=== PATIENT | female | born 1995 | race Caucasian/White ===

== ENCOUNTER 2020-10-09 08:32 | Outpatient (CLI) | payer MEDICAID, SELFPAY ==
--- NOTE | 2020-10-09 08:40 | US_ITS ---
WS: [id number] ULTRASOUND PELVIS TECHNIQUE: Transabdominal. CLINICAL INFORMATION: IRREGULAR MENSES/HIRSUTISM LMP: September 30, 2020 : No. COMPARISON: None. FINDINGS: Uterus Orientation: Anteverted. Size: 10.2 cm x 4.8 cm x 3.7 cm Masses: None. Cervix: cm. Endometrium: Normal. Endometrium thickness: 0.7 cm. Adnexa: Multifollicular ovaries Right ovary size: 3.5 cm x 2.4 cm x 2.1 cm. Right ovary volume: 9.6 ccm3 Left ovary size: 3.1 cm x 2.2 cm x 2.0 cm. Left ovary volume: 7.3 ccm3 Free fluid: None. Other findings: None. US/US pelvic complete* [id number] IMPRESSION: 1. Normal uterus and endometrium. Endometrium measures 7 mm. 2. Normal multifollicular ovaries bilaterally. 3. No free fluid in the cul-de-sac.
== END 2020-10-09 08:33 | disposition home or self-care (01) ==
LOC: RAD 08:37
PROVIDERS: PCP Family Medicine; Visit Provider Family Medicine
DX: N92.6 Irregular menstruation, unspecified (principal); L68.0 Hirsutism
CPT/HCPCS: 76856

== ENCOUNTER → 2020-11-22 12:02 | Outpatient (BNVA) | payer MEDICAID, SELFPAY | PROVIDERS: PCP Family Medicine; Visit Provider Surgery | DX: Z01.812 Encounter for preprocedural laboratory examination (principal); Z20.822 Contact with and (suspected) exposure to COVID-19 | CPT/HCPCS: 87635 ==

== ENCOUNTER 2020-11-27 07:08 | Day surgery (SDC) | payer MEDICAID, SELFPAY ==
--- NOTE | 2020-11-27 07:33 | ANES.PREANE2 ---
Pre-Anesthetic Assessment Pre-Anesthetic Assessment: Height/Weight: Height 1.6 m Weight 136.985 kg Preop Diagnosis: Bleeding per rectum Proposed Procedure: Operation Date: 11/27/20 09:00 Proposed Procedures p Colonoscopy 15542 K62.5(Not Applicable) - Jg Polanco MD Familial anesthetic complications: None Was Beta Leigh taken within 24 hours: N/A Was Clonidine taken within 24 hours: N/A Last intake: NPO > 8 hrs Social: Social History: Tobacco and No alcohol Exam: Pre-Anes Outpt Exam: alert, oriented x 3, clear to auscultation bilaterally and regular rate & rhythm Airway: Cervical ROM: WNL MP: 1 Dentition: Full Metabolic: Metabolic: Morbid obesity Anesthetic Plan: ASA status: 2 Anesthesia: MAC Risk of > 500 ml blood loss (7ml/kg in children): No PFSH Anesthesia PFSH: Family History Grandmother Cancer Grandfather Cancer Father Diabetes Other Hypertension Social History Smoking and tobacco status: current every day smoker e-cigarettes Alcohol intake: current Alcohol intake frequency: holidays/special occasions only Lives independently: Yes Household members: spouse and children Data Anesthesia Cardiac Studies: No Data to Display
--- NOTE | 2020-11-27 08:08 | W.PM.OPSUD ---
Surgery/Procedure H&P Update DATE OF PROCEDURE: November 27, 2020 DATE H&P PERFORMED: 10/28/20 H&P UPDATE INFORMATION: I have reviewed H&P completed within last 30 days, I have examined patient prior to procedure and No changes to prior documentation PREOP DIAGNOSIS: Bleeding per rectum PRIMARY INDICATION FOR PROCEDURE: The same PLANNED PROCEDURE: Operation Date: 11/27/20 09:00 Proposed Procedures p Colonoscopy 00035 K62.5(Not Applicable) - Jg Polanco MD
[2020-11-27 08:16] VITALS: BP 167/97; PULSE 74; RESP 18; TEMP 37; O2SAT 99
[2020-11-27] MEDS: sodium chloride 0.9% 1,000 ML 30 ML IV (08:42)
[2020-11-27 09:22] VITALS: BP 123/71; PULSE 72; RESP 16; TEMP 36.6; O2SAT 95
[2020-11-27 09:32] VITALS: BP 128/73; PULSE 78; RESP 18; TEMP 36.6; O2SAT 98
--- NOTE | 2020-11-27 13:13 | ANE.PACU2 ---
Inpatient post-anesthesia follow up: Airway intact: Yes Vital signs: Temperature 97.8 F Pulse Rate 78 Respiratory Rate 18 Blood Pressure 128/73 Pulse Oximetry 98 Oxygen Delivery Me thod Room Air Oxygen Flow Rate Fraction of Inspir ed Oxygen Hydration adequate: Yes Nausea and vomiting: No Pain level: 1 Mental status: Baseline
== END 2020-11-27 09:55 | disposition home or self-care (01) ==
PROVIDERS: PCP Family Medicine; Visit Provider Surgery
PROC: 0DJD8ZZ Inspection of Lower Intestinal Tract, Via Natural or Artificial Opening Endoscopic (ICD-10-PCS; CPT 45378; principal; 2020-11-27 09:00)
DX: K62.5 Hemorrhage of anus and rectum (principal); Q27.30 Arteriovenous malformation, site unspecified; E66.01 Morbid (severe) obesity due to excess calories; Z68.43 Body mass index [BMI] 50.0-59.9, adult; F17.290 Nicotine dependence, other tobacco product, uncomplicated
CPT/HCPCS: 45378; 96360; J2704; J7030

== ENCOUNTER 2020-12-31 13:06 | Emergency (ER) | payer MEDICAID, SELFPAY ==
--- NOTE | 2020-12-31 13:58 | XRR_ITS ---
PROCEDURE INFORMATION: Exam: XR Chest Exam date and time: 12/31/2020 1:59 PM Age: 25 years old Clinical indication: Cough and dyspnea; Additional info: Dyspnea/cough TECHNIQUE: Imaging protocol: XR of the chest. Views: 1 view. Other technique: Frontal portable upright view of the chest. COMPARISON: CR Chest 1 [place] [id number] 06/27/2015 5:56 PM FINDINGS: Lungs: The lungs are clear bilaterally. The pulmonary vasculature is normal. Pleural spaces: No pleural effusion. No pneumothorax. Heart/Mediastinum: The heart is normal in size and contour. Mediastinum: Stable. Bones/joints: Stable. XR/XR chest 1V portable [id number] IMPRESSION: No acute cardiopulmonary abnormality identified.
[2020-12-31 14:00] VITALS: BP 137/103; PULSE 84; RESP 18; TEMP 37.1; O2SAT 97; BMI 52.0
--- NOTE | 2020-12-31 14:50 | W.ED.URI ---
HPI - URI/Sore Throat General: Chief Complaint: Upper Respiratory Infection Stated Complaint: CHEST CONGESTION Time Seen by Provider: 12/31/20 14:46 History of Present Illness: HPI Narrative: Complaining of nasal congestion sneezing that has now progressed to her lungs this has been going on for couple of days she has a history of bronchitis and this feels similar she does occasionally smoke. She denies any fevers denies any exposures to Covid she has had her first round of vaccination several weeks ago denies fevers she has a nonproductive cough she is tried [id number] meds without relief she denies any loss of taste or smell came in today because she was getting so sore from all the coughing Review of Systems Narrative: General: denies fatigue, fever or chills HEENT: denies ear pain, ++nasal congestion, denies vision changes, denies sore throat Neck: denies masses or pain Resp: nonproductive cough, denies shortness of breath, denies pleuritic pain Cardio: denies chest pain, denies edema GI: denies abdominal pain, denies N/V/D, denies black/tarry or bloody stools : denies hematuria, denies dysuria Neuro: denies headache, denies dizziness, denies motor or sensory changes Musculoskeletal: denies pain, denies swelling Skin: denies rashes Psych: denies SI or HI Endocrine: denies thyroid symptoms, denies lymphadenopathy all over ROS reviewed and patient denies PFSH ED PFSH: Medical History Rectal bleeding Family History Grandmother Cancer Grandfather Cancer Father Diabetes Other Hypertension Social History Smoking and tobacco status: current every day smoker e-cigarettes Alcohol intake: current Alcohol intake frequency: holidays/special occasions only Lives independently: Yes Household members: spouse and children Physical Exam Narrative: EXAM NARRATIVE: General: a/o/3, no distress, actively couging, sounds congested Head: atraumatic HEENT: normal eyes, normal conjunctiva, normal hearing, normal external nose, normal mouth, mucous membranes moist Neck: FROM, trachea midline Chest: normal expansion, no gross deformities Resp: normal speech, no retractions, no accessory muscle use, coarse BS bilaterally, coughing Cardio: regular rate and rhythm and no murmur, no peripheral edema, normal peripheral pulses GI: soft, flat non tender, no guarding normal BS : deferred Musculoskeletal: FROM, no pain or gross deformities Neuro: a/o appropriate for age, no gross motor or sensory deficits, CN II-XII grossly intact, normal coordination, normal speech Skin: no rashes Psych: cooperative, normal mood and effect Course Vital Signs: Vital signs: Vital Signs Temperature 98.8 F 12/31/20 14:00 Pulse Rate 84 12/31/20 14:00 Respiratory Rate 18 12/31/20 14:00 Blood Pressure 137/103 12/31/20 14:00 Pulse Oximetry 97 12/31/20 14:00 MDM - URI/Sore Throat MDM Narrative: Medical decision making narrative: Patient denies any fevers or any other Covid symptoms she really does not want to be tested today she feels like it is more like her bronchitis Chest x-ray shows no signs of pneumonia patient does sound very congested and coughing will place her on an albuterol inhaler some prednisone as well as a Z-Allan and some cough medications patient feels comfortable with this plan discussed with her any risks or signs or symptoms of PE and she denies any of them and furthermore this all started as a cold-like symptoms she does sound very congested Discharge Plan Discharge Patient Disposition: Home Clinical Impression: Bronchitis Upper respiratory infection Qualifiers: URI type: unspecified URI Qualified Code(s): J06.9 - Acute upper respiratory infection, unspecified Condition: Stable Prescriptions: New albuterol sulfate 90 mcg/actuation HFA aerosol inhaler 2 inh inhalation QID PRN (Reason: shortness of breath or wheezing) Qty: 8.5 RF: 0 promethazine-phenylephrine [Promethazine VC] 6.25-5 mg/5 mL syrup 5 ml PO Q6H PRN (Reason: cough) Qty: 473 RF: 0 azithromycin [Zithromax Z-Allan] 250 mg tablet See Rx Instructions .ROUTE .COMPLEX Qty: 6 RF: 0 prednisone 20 mg tablet 20 mg PO BID 5 Days Qty: 10 RF: 0 No Action No Known Home Medications RF: 0 Discharge Orders: Discharge ED (Routine); Ordered 12/31/20 Ordered By: Olamide Perdomo Referrals: Jed Perez MD [Primary Care Provider] - Discharge Diet: Advance as tolerated Patient Instructions: Acute Bronchitis (ED) Activity Restrictions/Additional Instructions: Use the inhaler 2 puffs every 6 hours as needed for wheezing. Cough medication may make you drowsy. Also start the steroids today and get 2 doses then or you could take 2 pills together when you first get the prescription. Z-Allan is an antibiotic for infections Return if worsening of symptoms shortness of breath Follow-up with your provider in 1 week thank you for choosing [facility] for your healthcare needs today. Please realize this is an emergency room and that we are providing you with a medical screening exam and this may not be complete and all inclusive of all the testing and or work up that you may need to determine your ailment or severity of your illness. It is very important that you follow up as instructed or that you return to the Emergency Department should you have concerns or if your condition changes or worsens in any way. Coding Level of Care Code ED Cloud Subject Matter Expert for Anthony Burton
[2020-12-31 14:56] VITALS: BP 150/96; PULSE 88; RESP 20; TEMP 36.6; O2SAT 97
== END 2020-12-31 15:03 | disposition home or self-care (01) ==
PROVIDERS: Emergency Provider Emergency Medicine; PCP Family Medicine
DX: J40 Bronchitis, not specified as acute or chronic (principal); J06.9 Acute upper respiratory infection, unspecified; F17.290 Nicotine dependence, other tobacco product, uncomplicated
CPT/HCPCS: 71045; 99282

== ENCOUNTER → 2021-02-15 10:51 | Outpatient (BNVA) | payer MEDICAID, SELFPAY | PROVIDERS: PCP Family Medicine; Visit Provider Nurse Practitioner | DX: J02.9 Acute pharyngitis, unspecified (principal); J02.0 Streptococcal pharyngitis | CPT/HCPCS: 87880 ==

== ENCOUNTER 2021-09-11 13:36 | Emergency (ER) | payer MEDICAID, SELFPAY ==
[2021-09-11 14:01] VITALS: BP 142/102; PULSE 85; RESP 17; TEMP 36.2; O2SAT 98; BMI 49.4
--- NOTE | 2021-09-11 19:07 | ED_ITS ---
HPI - General Adult General: Chief complaint: Vaginal Bleeding Stated complaint: Pt states Uteran Lining fell out Severe ABD pain Time Seen by Provider: 09/11/21 19:03 Source: patient Mode of arrival: ambulatory Limitations: no limitations History of Present Illness: 26-year-old female states that she has been about a day late for her menstruation. She states that she had been started all day and then started having some lower abdominal cramping pain that is roughly an 8 at around noon or 1 and had a large amount of bleeding at 1 time she states she fell like she just she had at her uterine lining states that since then she just had spotting her pain is actually improving but still having pain she rates a 3 out of 10 she does not believe she is denies any worsening improving factors denies any discharge. Associated symptoms: Deny chest pain, dyspnea, headache(s), nausea, rash or vomiting Review of Systems Const: Denies: fever(s), chills, body aches or change in appetite Eyes: Denies: blurry vision or eye discomfort ENMT: Denies: throat pain or dental pain Card: Denies: chest pain Resp: Denies: dyspnea GI: Denies: abdominal pain, nausea, vomiting or diarrhea : Denies: dysuria Musc: Denies: neck pain or back pain Skin/Breast: Denies: rash Neuro: Denies: headache(s) Psych: Denies: depression Surjit/Lymph: Denies: easy bruising All/Imm: Denies: urticaria PFSH ED PFSH: Medical History Rectal bleeding Family History Grandmother Cancer Grandfather Cancer Father Diabetes Other Hypertension Social History Smoking and tobacco status: current every day smoker e-cigarettes Alcohol intake: current Alcohol intake frequency: holidays/special occasions only Lives independently: Yes Household members: spouse and children Physical Exam Const: COMMON NORMALS: no acute distress, patient oriented x3 and healthy appearing HENMT: COMMON NORMALS: normocephalic and atraumatic HEAD & SCALP: normocephalic and atraumatic Eye: COMMON NORMALS: Equal, round and reactive pupils present and EOMs intact bilaterally PUPIL: Yes Equal, round and reactive pupils present Neck/C-Spine: COMMON NORMALS: full ROM and supple Chest: COMMONS NORMALS: normal inspection of the chest and normal palpation of entire chest wall Resp: COMMON NORMALS: normal respiratory effort, No retractions, No use of accessory muscles and clear to auscultation bilaterally AUSCULTATION: clear to auscultation bilaterally Cardio: COMMON NORMALS: regular rate, regular rhythm and No murmurs present (Cardio) RATE: regular rate RHYTHM: regular rhythm GI: COMMON NORMALS: Normal to inspection, nondistended, normoactive bowel sounds present, Soft to palpation, non-tender and no masses PALPATION: Yes Soft to palpation : SPECULUM EXAM - CERVIX: Yes Cervical os closed, No Cervical bleeding and No Abnormal cervical discharge present Extremity: COMMON NORMALS: normal to inspection and full ROM Neuro: COMMON NORMALS: patient oriented x3, moves all extremities and no focal motor deficits Psych: COMMON NORMALS: mental status grossly normal, Normal thought process present and cooperative THOUGHT PROCESS: Normal thought process present Skin: COMMON NORMALS: no rashes or lesions noted and no wounds GENERAL SKIN EXAM: no rashes or lesions noted Course Vital Signs: Vital signs: Vital Signs Temperature 97.2 F L 09/11/21 14:01 Pulse Rate 85 09/11/21 14:01 Respiratory Rate 17 09/11/21 14:01 Blood Pressure 142/102 09/11/21 14:01 Pulse Oximetry 98 09/11/21 14:01 [facility] - General Adult Medical Decision Making Patient presents here with an episode of vaginal bleeding and some slight lower abdominal cramping patient feels much improved her exam and blood work here are all normal she is not she stable for discharge she is to follow-up with PCP and return if worsening she understands agrees to plan. Lab Data : 09/11/21 19:53 09/11/21 19:53 Laboratory Results WBC 9.4 10^3/uL (4.0-10.0) 09/11/21 19:53 RBC 4.65 10^6/uL (4.1-5.3) 09/11/21 19:53 Hgb 13.8 g/dL (11.5-15.3) 09/11/21 19:53 Hct 41.0 % (37.0-47.0) 09/11/21 19:53 MCV 88.2 fl (81-99) 09/11/21 19:53 MCH 29.7 pg (28.0-34.0) 09/11/21 19:53 MCHC 33.7 g/dL (30.0-36.0) 09/11/21 19:53 RDW 13.1 % (12.1-15.1) 09/11/21 19:53 Plt Count 383 10^3/cmm (130-400) 09/11/21 19:53 MPV 9.5 fL (7.4-10.4) 09/11/21 19:53 Neut % (Auto) 61.2 % 09/11/21 19:53 Lymph % (Auto) 29.5 % 09/11/21 19:53 Fajardo % (Auto) 5.6 % 09/11/21 19:53 Eos % (Auto) 3.3 % 09/11/21 19:53 Baso % (Auto) 0.2 % 09/11/21:53 Neut # (Auto) 5.74 10^3/uL (1.8-7.7) 09/11/21 19:53 Lymph # (Auto) 2.8 10^3/uL (0.8-4.8) 09/11/21 19:53 Fajardo # (Auto) 0.5 10^3/uL (0.2-0.9) 09/11/21 19:53 Eos # (Auto) 0.3 10^3/uL (0.0-0.8) 09/11/21 19:53 Baso # (Auto) 0.0 10^3/uL (0.0-0.1) 09/11/21 19:53 Nucleated RBC % (auto) 0 % 09/11/21:53 Nucleated RBCs # 0.0 /100WBC 09/11/21 19:53 Sodium 138 mmol/L (136-145) 09/11/21 19:53 Potassium 4.0 mmol/L (3.5-5.1) 09/11/21 19:53 Chloride 104 mmol/L (98-107) 09/11/21 19:53 Carbon Dioxide 24 mmol/L (22-29) 09/11/21 19:53 Anion Gap 14.0 (5-19) 09/11/21 19:53 BUN 13 mg/dL (6-20) 09/11/21 19:53 Creatinine 0.7 mg/dL (0.5-0.9) 09/11/21 19:53 GFR Calculation 101.1 mL/min (90-130) 09/11/21 19:53 Glucose 80 mg/dL (65-115) 09/11/21 19:53 Calculated Osmolality 285 mOsm/kg (285-295) 09/11/21 19:53 Calcium 9.7 mg/dL (8.5-10.5) 09/11/21 19:53 Total Bilirubin 0.2 mg/dL (0.15-1.2) 09/11/21 19:53 AST 15 U/L (0-32) 09/11/21 19:53 ALT 16 U/L (0-33) 09/11/21 19:53 Alkaline Phosphatase 101 IU/L (35-105) 09/11/21 19:53 Total Protein 7.9 g/dL (6.6-8.7) 09/11/21 19:53 Albumin 4.2 g/dL (3.5-5.2) 09/11/21 19:53 Globulin 3.7 g/dL (1.3-4.6) 09/11/21 19:53 Lipase 23 U/L (13-60) 09/11/21 19:53 HCG, Qual Negative (Negative) 09/11/21 19:53 Discharge Plan Discharge Patient Disposition: Home Clinical Impression: Vaginal bleeding, Abdominal pain Condition: Stable Prescriptions: New Naprosyn 500 mg tablet 500 mg PO BID PRN (Reason: pain) Qty: 20 0RF No Action doxycycline hyclate 100 mg capsule 100 mg PO BID 7 Days Qty: 14 0RF albuterol sulfate 90 mcg/actuation HFA aerosol inhaler 2 inh inhalation QID PRN (Reason: shortness of breath or wheezing) Qty: 8.5 0RF Promethazine VC 6.25-5 mg/5 mL syrup 5 ml PO Q6H PRN (Reason: cough) Qty: 473 0RF Discharge Orders: Discharge ED (Routine); Ordered 09/11/21 Ordered By: Lili Strickland Referrals: Jed Perez MD [Primary Care Provider] - Discharge Diet: Advance as tolerated Discharge Activity: Resume usual activity Patient Instructions: Abnormal (Dysfunctional) Uterine Bleeding (ED), Abdominal Pain (ED) Coding Level of Care Code ED Management Scientist for Chg Fwd Exam Comprehensive
[2021-09-11] MEDS: ketorolac 30 mg/mL INJ IM (19:55)
[2021-09-11 20:20] LABS: Basophils % 0.2 %; Eosinophils # 0.3 10^3/uL (0.0-0.8); Eosinophils % 3.3 %; Hemoglobin 13.8 g/dL (11.5-15.3); Lymphocytes # 2.8 10^3/uL (0.8-4.8); Lymphocytes % 29.5 %; Mean Corpuscular HGB Conc 33.7 g/dL (30.0-36.0); Mean Corpuscular Hemoglobin 29.7 pg (28.0-34.0); Mean Corpuscular Volume 88.2 fl (81-99); Mean Platelet Volume 9.5 fL (7.4-10.4); Monocytes # 0.5 10^3/uL (0.2-0.9); Monocytes % 5.6 %; Neutrophils # 5.74 10^3/uL (1.8-7.7); Neutrophils % 61.2 %; Nucleated Red Blood Cells % 0 %; Platelet Count 383 10^3/cmm (130-400); Red Blood Count 4.65 10^6/uL (4.1-5.3); Red Cell Distribution Width 13.1 % (12.1-15.1); White Blood Count 9.4 10^3/uL (4.0-10.0)
[2021-09-11 20:47] LABS: Alanine Aminotransferase 16 U/L (0-33); Albumin Level 4.2 g/dL (3.5-5.2); Alkaline Phosphatase 101 IU/L (35-105); Aspartate Amino Transferase 15 U/L (0-32); Blood Urea Nitrogen 13 mg/dL (6-20); Calcium 9.7 mg/dL (8.5-10.5); Carbon Dioxide 24 mmol/L (22-29); Chloride 104 mmol/L (98-107); Creatinine Clr Calc Pharmacy 151.9792; Globulin 3.7 g/dL (1.3-4.6); Glomerular Filtration Rate 101.1 mL/min (90-130); Glucose 80 mg/dL (65-115); Lipase 23 U/L (13-60); Osmolality Calculated 285 mOsm/kg (285-295); Sodium 138 mmol/L (136-145); Total Bilirubin 0.2 mg/dL (0.15-1.2); Total Protein 7.9 g/dL (6.6-8.7)
[2021-09-11 21:14] LABS: HCG, Serum Qual Negative (Negative)
[2021-09-11 21:37] VITALS: RESP 18
== END 2021-09-11 21:38 | disposition home or self-care (01) ==
PROVIDERS: Emergency Medicine; Emergency Provider Emergency Medicine; PCP Family Medicine
DX: N93.9 Abnormal uterine and vaginal bleeding, unspecified (principal); R10.9 Unspecified abdominal pain; F17.290 Nicotine dependence, other tobacco product, uncomplicated
CPT/HCPCS: 80053; 83690; 84703; 85025; 96372; 99283; J1885

== ENCOUNTER 2022-03-22 11:26 | Emergency (ER) | payer BC, MEDICAID, SELFPAY ==
[2022-03-22 11:51] VITALS: BP 129/81; PULSE 72; RESP 16; TEMP 36.6; O2SAT 97; BMI 47.8
--- NOTE | 2022-03-22 12:10 | W.ED.CHESTPA ---
HPI - Chest Pain General: Chief Complaint: Chest Pain Stated Complaint: fast hr , cp, numbness to bilateral hand and feet Time Seen by Provider: 03/22/22 12:10 History of Present Illness: Ms. Ceja is a 26-year-old lady with significant past medical history of anxiety, depression, PCOS who presents to the emergency department due to shortness of breath chest pain. She endorses shortness of breath starting with eating yesterday evening. She denies choking event or new food exposure. Since that time she has had moderate shortness of breath was worse exertion and this morning she woke up with burning substernal chest pain without significant radiation. Additionally she notes bilateral lower and upper extremity hand and feet tingling difficulty movement. There is no focality regarding this. No new neuro symptoms. Palpitations and racing heart also present. Course has persisted. Reports this feels different from prior anxiety. No other specific changes in health, exacerbating, or alleviating factors identified. Onset (ago): hour(s) Timing of current episode: constant Prior episodes: No Pain location: substernal Pain radiation: none Severity: moderate Quality: burning Associated symptoms: Reports dyspnea Review of Systems General: Reports: 10 or more systems reviewed and unremarkable except in HPI and below Resp: Reports: dyspnea PFSH ED PFSH: Medical History Rectal bleeding Family History Grandmother Cancer Grandfather Cancer Father Diabetes Other Hypertension Social History Smoking and tobacco status: current every day smoker e-cigarettes Alcohol intake: current Alcohol intake frequency: holidays/special occasions only Lives independently: Yes Household members: spouse and children Physical Exam Const: COMMON NORMALS: alert GENERAL APPEARANCE: cooperative and well developed HENMT: COMMON NORMALS: normocephalic and atraumatic HEAD & SCALP: normocephalic and atraumatic Eye: COMMON NORMALS: conjunctivae normal CONJUNCTIVA: Yes conjunctivae normal SCLERA: sclerae normal Neck/C-Spine: COMMON NORMALS: supple GENERAL: Yes trachea midline Resp: COMMON NORMALS: clear to auscultation bilaterally EFFORT & INSPECTION: Yes able to speak in complete sentences AUSCULTATION: clear to auscultation bilaterally Cardio: COMMON NORMALS: regular rate and regular rhythm RATE: regular rate RHYTHM: regular rhythm GI: COMMON NORMALS: Soft to palpation PALPATION: Yes Soft to palpation and No Tenderness to palpation present (GI) Extremity: GENERAL: Yes normal exam except as noted and No edema Neuro: COMMON NORMALS: moves all extremities SENSORIUM/ORIENTATION: Yes alert and No Orientation impaired OTHER: Mildly slowed dexterity upon testing of bilateral hands however appear symmetric without particular nerve distribution Psych: COMMON NORMALS: mental status grossly normal and Normal thought process present THOUGHT PROCESS: Normal thought process present Course ED course: - Patient was seen and evaluated by me at bedside - Patient placed on cardiac monitors, IV access obtained - Initial evaluation notable for exam as above. - Labs and xrays personally interpreted by me EKG notable for sinus rhythm with nonspecific ST-T segment abnormalities. No STEMI. - Fluids, analgesia, and aspirin given - Labs notable for no acute abnormality to explain symptoms. D-dimer is elevated, ordered after discussion with the patient regarding risks and benefits. - Imaging notable for no lobar consolidation or pneumothorax. No acute pathology identified on CTA - Upon serial reexamination after treatment the patient was mildly improved - Based on patient history, evaluation, and testing as interpreted the most likely cause of the patient's condition is chest pain with shortness of breath and paresthesias of uncertain etiology. Patient is low risk by heart score. - The results of ED evaluation were discussed with the patient including prescriptions and/or symptomatic cares (if applicable) including appropriate and responsible use, followup plan, and return precautions. The patient verbalized understanding and felt safe for discharge. - Patient discharged in satisfactory condition. Note: Click bubbles or prepopulated fried in note writing are used for assistance with data collection and billing and are inherently more limited than narrative and other text portions of this note. Please use narrative for additional clinical history and defer to narrative/free test for any case of contradictory information. If information appears in only free text or click bubble it should be considered present or absent as reported. Please contact note underwriter solicitation director for clarifications of clinical information or contradictory information. MDM is a brief summary, contradictory or erroneous seeming information should be clarified and full note should be reviewed. Vital Signs: Vital signs: Vital Signs Temperature 97.9 F 03/22/22 11:51 Pulse Rate 57 L 03/22/22 14:45 Respiratory Rate 16 03/22/22 14:45 Blood Pressure 125/80 03/22/22 14:45 Pulse Oximetry 97 03/22/22 14:45 Oxygen Delivery Me thod 03/22/22 14:45 MDM - Chest Pain Medical Decision Making 26-year-old lady presenting with paresthesias, chest pain, shortness of breath. ED evaluation without obvious cause. Satisfactory for outpatient management. Medical Records I reviewed the patient's medical records. Lab Data I reviewed the patient's lab results. : 03/22/22 12:30 03/22/22 12:30 Radiology Impressions Chest X-Ray 03/22/22 12:20 IMPRESSION: No acute findings. Chest CTA 03/22/22 12:59 IMPRESSION: No pulmonary embolus or aortic dissection. Laboratory Results WBC 9.5 10^3/uL (4.0-10.0) 03/22/22 12:30 RBC 4.77 10^6/uL (4.1-5.3) 03/22/22 12:30 Hgb 14.4 g/dL (11.5-15.3) 03/22/22 12:30 Hct 42.0 % (37.0-47.0) 03/22/22 12:30 MCV 88.1 fl (81-99) 03/22/22 12:30 MCH 30.2 pg (28.0-34.0) 03/22/22 12:30 MCHC 34.3 g/dL (30.0-36.0) 03/22/22 12:30 RDW 12.7 % (12.1-15.1) 03/22/22 12:30 Plt Count 321 10^3/cmm (130-400) 03/22/22 12:30 MPV 9.6 fL (7.4-10.4) 03/22/22 12:30 Neut % (Auto) 64.8 % 03/22/22 12:30 Lymph % (Auto) 25.4 % 03/22/22 12:30 [place] % (Auto) 6.2 % 03/22/22 12:30 Eos % (Auto) 3.2 % 03/22/22 12:30 Baso % (Auto) 0.2 % 03/22/22 12:30 Neut # (Auto) 6.13 10^3/uL (1.8-7.7) 03/22/22 12:30 Lymph # (Auto) 2.4 10^3/uL (0.8-4.8) 03/22/22 12:30 [place] # (Auto) 0.6 10^3/uL (0.2-0.9) 03/22/22 12:30 Eos # (Auto) 0.3 10^3/uL (0.0-0.8) 03/22/22 12:30 Baso # (Auto) 0.0 10^3/uL (0.0-0.1) 03/22/22 12:30 Nucleated RBC % (auto) 0 % 03/22/22 12:30 Nucleated RBCs # 0.0 /100WBC 03/22/22 12:30 D-Dimer 0.78 ug/mIFEU (0-0.59) H 03/22/22 12:30 Sodium 139 mmol/L (136-145) 03/22/22 12:30 Potassium 4.7 mmol/L (3.5-5.1) 03/22/22 12:30 Chloride 103 mmol/L (98-107) 03/22/22 12:30 Carbon Dioxide 26 mmol/L (22-29) 03/22/22 12:30 Anion Gap 14.7 (5-19) 03/22/22 12:30 BUN 9 mg/dL (6-20) 03/22/22 12:30 Creatinine 0.7 mg/dL (0.5-0.9) 03/22/22 12:30 GFR Calculation 101.1 mL/min (90-130) 03/22/22 12:30 Glucose 84 mg/dL (65-115) 03/22/22 12:30 Calculated Osmolality 286 mOsm/kg (285-295) 03/22/22 12:30 Calcium 9.3 mg/dL (8.5-10.5) 03/22/22 12:30 Ionized Calcium Kathrine 1.0 mmol/L (1.1-1.4) L 03/22/22 14:09 Total Bilirubin 0.4 mg/dL (0.15-1.2) 03/22/22 12:30 AST 19 U/L (0-32) 03/22/22 12:30 ALT 20 U/L (0-33) 03/22/22 12:30 Alkaline Phosphatase 113 U/L (35-105) H 03/22/22 12:30 Troponin T Baseline 6 ng/L (0-10) 03/22/22 12:30 Total Protein 7.2 g/dL (6.6-8.7) 03/22/22 12:30 Albumin 4.3 g/dL (3.5-5.2) 03/22/22 12:30 Globulin 2.9 g/dL (1.3-4.6) 03/22/22 12:30 Lipase 20 U/L (13-60) 03/22/22 12:30 Discharge Plan Discharge Patient Disposition: Home Clinical Impression: Chest pain, Paresthesia, Shortness of breath Condition: Stable Prescriptions: No Action doxycycline hyclate 100 mg capsule 100 mg PO BID 7 Days Qty: 14 0RF Naprosyn 500 mg tablet 500 mg PO BID PRN (Reason: pain) Qty: 20 0RF albuterol sulfate 90 mcg/actuation HFA aerosol inhaler 2 inh inhalation QID PRN (Reason: shortness of breath or wheezing) Qty: 8.5 0RF Promethazine VC 6.25-5 mg/5 mL syrup 5 ml PO Q6H PRN (Reason: cough) Qty: 473 0RF Discharge Orders: Discharge ED (Routine); Ordered 03/22/22 Ordered By: Neftaly Leon Referrals: Delilah Laughlin FNP [Primary Care Provider] - Discharge Diet: Usual diet Discharge Activity: Increase activity as tolerated Patient Instructions: Chest Pain (ED), Paresthesia (ED), Shortness of Breath (ED) Activity Restrictions/Additional Instructions: Thank you for visiting the emergency department. You were seen and evaluated for chest pain and shortness of breath. The exact cause of your symptoms is unclear though it does not appear to need hospitalization at this time. Please follow-up with your primary care provider. Return to the emergency department for uncontrolled symptoms or anything else that you are concerned about and feel needs emergency department evaluation. Stand Alone Forms: Work/School Release Coding Level of Care Code ED Health Club Manager for Anthony Fwd Exam Comprehensive
--- NOTE | 2022-03-22 12:20 | ECG_ITS ---
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 Measurements Intervals [place] Rate: 79 P: 48 MN: 176 QRS: 13 QRSD: 89 T: 21 QT: 357 QTc: 411 Interpretive Statements SINUS RHYTHM WITH SINUS ARRHYTHMIA POSSIBLE LEFT ATRIAL ENLARGEMENT [-0.1mV P-WAVE IN V1/V2] LOW QRS VOLTAGE IN PRECORDIAL LEADS [QRS DEFLECTION < 1.0 mV IN CHEST LEADS] No previous ECG available for comparison Electronically Signed On 03-23-2022 7:58:54 CDT by Naomi Walton M.D. [id number] terence
--- NOTE | 2022-03-22 12:20 | XRR_ITS ---
PROCEDURE INFORMATION: Exam: XR Chest Exam date and time: 03/22/2022 1:07 PM Age: 26 years old Clinical indication: Pain; Shortness of breath; Angina pectoris; Additional info: tigre ORTIZ TECHNIQUE: Imaging protocol: Radiologic exam of the chest. Views: 1 view. Total images: 624 COMPARISON: CR XR chest 1V portable [id number] 12/31/2020 2:01 PM FINDINGS: Lungs: Unremarkable. No consolidation. Pleural spaces: Unremarkable. No pleural effusion. No pneumothorax. Heart/Mediastinum: Unremarkable. No cardiomegaly. Bones/joints: Unremarkable. XR/XR chest 1V portable [id number] IMPRESSION: No acute findings.
[2022-03-22] MEDS: aspirin 81 mg Chew Tablet 324 MG PO (12:40)
[2022-03-22] MEDS: sodium chloride 0.9% 1,000 ML 999 ML IV (12:40)
[2022-03-22] MEDS: lidocaine 2% viscous 15 ML, aluminum-mag hydrox-simethicon 30 ML, sucralfate oral liq 1 GM PO (12:41)
[2022-03-22 12:45] LABS: Basophils % 0.2 %; Eosinophils # 0.3 10^3/uL (0.0-0.8); Eosinophils % 3.2 %; Hemoglobin 14.4 g/dL (11.5-15.3); Lymphocytes # 2.4 10^3/uL (0.8-4.8); Lymphocytes % 25.4 %; Mean Corpuscular HGB Conc 34.3 g/dL (30.0-36.0); Mean Corpuscular Hemoglobin 30.2 pg (28.0-34.0); Mean Corpuscular Volume 88.1 fl (81-99); Mean Platelet Volume 9.6 fL (7.4-10.4); Monocytes # 0.6 10^3/uL (0.2-0.9); Monocytes % 6.2 %; Neutrophils # 6.13 10^3/uL (1.8-7.7); Neutrophils % 64.8 %; Nucleated Red Blood Cells % 0 %; Platelet Count 321 10^3/cmm (130-400); Red Blood Count 4.77 10^6/uL (4.1-5.3); Red Cell Distribution Width 12.7 % (12.1-15.1); White Blood Count 9.5 10^3/uL (4.0-10.0)
[2022-03-22 12:57] LABS: D Dimer 0.78 ug/mIFEU (0-0.59)
--- NOTE | 2022-03-22 12:59 | CTR_ITS ---
PROCEDURE INFORMATION: Exam: CTA Chest With Contrast Exam date and time: 03/22/2022 1:17 PM Age: 26 years old Clinical indication: Pain; Shortness of breath; Angina pectoris; Additional info: Cp, SOB, elevated ddimer TECHNIQUE: Imaging protocol: Computed tomographic angiography of the chest with contrast. 3D rendering (Not supervised by radiologist): MIP and/or 3D reconstructed images were created by the technologist. Radiation optimization: All CT scans at this facility use at least one of these dose optimization techniques: automated exposure control; mA and/or kV adjustment per patient size (includes targeted exams where dose is matched to clinical indication); or iterative reconstruction. Contrast material: OMNI 350; Contrast volume: 86 ml; Contrast route: INTRAVENOUS (IV); COMPARISON: CR XR chest 1V portable [id number] 03/22/2022 1:07 PM RADIATION DOSE METRICS: Total DLP (mGy-cm): 451.45 FINDINGS: Pulmonary arteries: No pulmonary embolus or aortic dissection. Aorta: See Pulmonary arteries finding. Lungs: Unremarkable. No consolidation. No masses. Pleural spaces: Unremarkable. No pneumothorax. No pleural effusion. Heart: Unremarkable. No cardiomegaly. No pericardial effusion. Lymph nodes: Unremarkable. No enlarged lymph nodes. Bones/joints: Dextroscoliosis. Soft tissues: Unremarkable. Other findings: Examination is limited secondary to motion artifact. CT/CT angio chest PE protcl [id number] IMPRESSION: No pulmonary embolus or aortic dissection.
[2022-03-22 13:00] LABS: Alanine Aminotransferase 20 U/L (0-33); Albumin Level 4.3 g/dL (3.5-5.2); Alkaline Phosphatase 113 U/L (35-105); Blood Urea Nitrogen 9 mg/dL (6-20); Calcium 9.3 mg/dL (8.5-10.5); Carbon Dioxide 26 mmol/L (22-29); Chloride 103 mmol/L (98-107); Globulin 2.9 g/dL (1.3-4.6); Glomerular Filtration Rate 101.1 mL/min (90-130); Glucose 84 mg/dL (65-115); Lipase 20 U/L (13-60); Osmolality Calculated 286 mOsm/kg (285-295); Sodium 139 mmol/L (136-145); Total Bilirubin 0.4 mg/dL (0.15-1.2); Total Protein 7.2 g/dL (6.6-8.7)
[2022-03-22 13:06] LABS: Anion Gap 14.7 (5-19)
[2022-03-22 13:07] LABS: Aspartate Amino Transferase 19 U/L (0-32); Potassium 4.7 mmol/L (3.5-5.1); Troponin(5th) Baseline 6 ng/L (0-10)
[2022-03-22] MEDS: iohexol 350 mg/mL 100 mL Btl IV (13:28)
--- NOTE | 2022-03-22 14:26 | ECG_ITS ---
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 Measurements Intervals [place] Rate: 48 P: 57 [place]: 163 QRS: 23 QRSD: 98 T: 19 QT: 418 QTc: 375 Interpretive Statements SINUS BRADYCARDIA WITH SINUS ARRHYTHMIA POSSIBLE LEFT ATRIAL ENLARGEMENT [-0.1mV P-WAVE IN V1/V2] LOW QRS VOLTAGE IN PRECORDIAL LEADS [QRS DEFLECTION < 1.0 mV IN CHEST LEADS] No previous ECG available for comparison Electronically Signed On 03-23-2022 8:08:28 CDT by Naomi Walton M.D. [id number]
[2022-03-22 14:45] VITALS: BP 125/80; PULSE 57; RESP 16; O2SAT 97
== END 2022-03-22 14:47 | disposition home or self-care (01) ==
PROVIDERS: Emergency Provider Emergency Medicine; PCP Nurse Practitioner Family
DX: R07.9 Chest pain, unspecified (principal); R20.2 Paresthesia of skin; R06.02 Shortness of breath; F17.290 Nicotine dependence, other tobacco product, uncomplicated
CPT/HCPCS: 71045; 71275; 80053; 82330; 83690; 84484; 85025; 85378; 93005; 96360; 99285; J7030; Q9967

== ENCOUNTER 2023-07-27 19:34 | Emergency (ER) | payer MEDICAID, SELFPAY ==
[2023-07-27 19:44] VITALS: BP 148/98; PULSE 104; RESP 16; TEMP 36.4; O2SAT 100; BMI 49.6
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
== END 2023-07-27 21:38 | disposition home or self-care (01) ==
PROVIDERS: Emergency Provider Emergency Medicine; PCP Nurse Practitioner Family
DX: S13.4XXA Sprain of ligaments of cervical spine, initial encounter (principal); S09.8XXA Other specified injuries of head, initial encounter; F17.290 Nicotine dependence, other tobacco product, uncomplicated; V89.2XXA Person injured in unspecified motor-vehicle accident, traffic, initial encounter
CPT/HCPCS: 70450; 72125; 73610; 73630; 99284

== ENCOUNTER 2023-09-30 08:25 | Emergency (ER) | payer MEDICAID, SELFPAY ==
[2023-09-30 08:29] VITALS: BP 164/140; PULSE 73; RESP 18; TEMP 36.5; O2SAT 98; BMI 50.5
--- NOTE | 2023-09-30 08:31 | ECG_ITS ---
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 Measurements Intervals Lane Rate: 67 P: 51 VT: 184 QRS: 15 QRSD: 88 T: 18 QT: 368 QTc: 390 Interpretive Statements SINUS RHYTHM WITH MARKED SINUS ARRHYTHMIA POSSIBLE LEFT ATRIAL ENLARGEMENT [-0.1mV P-WAVE IN V1/V2] POSSIBLE ANTERIOR MYOCARDIAL INFARCTION , PROBABLY OLD [30 ms Q WAVE IN V3/V4, OR R < 0.2 mV IN V4] Compared to ECG 03/22/2022 14:26:40 Myocardial infarct finding now present Sinus bradycardia no longer present Electronically Signed On 09-30-2023 21:04:16 VOLUNTEER ASSISTANT by Portia Ruiz M.D. [id number] f
--- NOTE | 2023-09-30 08:45 | XR_ITS ---
WS: [id number] Exam: XR chest 1V portable [id number] Date/Time of Exam: 09/30/2023 8:56 AM Reason For Exam: dyspnea/cough Comparison 03/22/2022. The lungs are clear and fully expanded. Heart size is normal for technique. No pleural effusions. Bon y elements are intact. EKG leads superimpose the chest. IMPRESSION: 1. No acute cardiopulmonary finding. No change.
[2023-09-30 08:46] LABS: Basophils % 0.2 %; Eosinophils # 0.2 10^3/uL (0.0-0.8); Eosinophils % 1.7 %; Hematocrit 42.3 % (36-47); Lymphocytes % 21.5 %; Mean Corpuscular HGB Conc 33.3 g/dL (30-55); Mean Corpuscular Hemoglobin 28.8 pg (27-33); Mean Corpuscular Volume 86.3 fl (85-98); Mean Platelet Volume 8.9 fL (7.4-10.4); Monocytes # 0.5 10^3/uL (0.2-0.9); Monocytes % 5.7 %; Neutrophils # 6.43 10^3/uL (1.8-7.7); Neutrophils % 70.7 %; Nucleated Red Blood Cells % 0 %; Platelet Count 369 10^3/cmm (157-399); Red Cell Distribution Width 13.1 % (12.1-15.1); White Blood Count 9.09 10^3/uL (3.29-11.43)
[2023-09-30 08:57] LABS: Alanine Aminotransferase 25 U/L (0-33); Albumin Level 4.3 g/dL (3.5-5.2); Alkaline Phosphatase 105 U/L (35-105); Anion Gap 14.4 (5-19); Aspartate Amino Transferase 18 U/L (0-32); Blood Urea Nitrogen 11 mg/dL (6-20); Calcium 9.2 mg/dL (8.5-10.5); Carbon Dioxide 24 mmol/L (22-29); Chloride 106 mmol/L (98-107); Creatinine Clr Calc Pharmacy 137.4278; Globulin 3.5 g/dL (1.3-4.6); Glomerular Filtration Rate 85.4 mL/min (90-130); Glucose 100 mg/dL (65-115); Osmolality Calculated 289 mOsm/kg (285-295); Potassium 4.4 mmol/L (3.5-5.1); Sodium 140 mmol/L (136-145); Total Bilirubin 0.3 mg/dL (0.15-1.2); Total Protein 7.8 g/dL (6.6-8.7)
--- NOTE | 2023-09-30 09:32 | ED_ITS ---
HPI - Chest Pain 2 General: Chief Complaint: Chest Pain Stated Complaint: ams,sob,chest pain Time Seen by Provider: 09/30/23 08:26 Source: patient Mode of arrival: ambulatory History of Present Illness: 28-year-old female presents emergency ro om with cough minimally productive short of breath generally not feeling well some chest discomfort. He feels like he ago passed out at times. No vomiting no diarrhea. Progressively worse over the last few days. MD complaint: chest pain Onset (ago): day(s) Onset: during rest Pain location: left chest and right chest Pain radiation: none Severity: moderate Quality: aching Relieving factors: nothing Exacerbating factors: nothing Associated symptoms: Reports dyspnea; Deny abdominal pain, diaphoresis, fever(s), leg edema, nausea, palpitations, sense of impending doom, syncope or vomiting Treatment prior to arrival: none Review of Systems 2 Const: Denies: fever(s) or diaphoresis Card: Reports: chest pain; Denies: palpitations or syncope Resp: Reports: dyspnea and non-productive cough GI: Denies: abdominal pain, nausea or vomiting : Denies: dysuria, urinary frequency or urinary urgency Musc: Denies: neck pain or back pain Skin/Breast: Denies: rash PFSH ED 2 PFSH: Medical History Rectal bleeding Family History Grandmother Cancer Grandfather Cancer Father Diabetes Other Hypertension Social History Smoking and tobacco/nicotine status: current every day tobacco/nicotine user e- cigarettes Alcohol intake: current Alcohol intake frequency: holidays/special occasions only Substance/Drug Use: never Lives independently: Yes Household members: spouse and children Physical Exam 2 Const: COMMON NORMALS: no acute distress GENERAL APPEARANCE: cooperative and comfortable ORIENTATION/CONSCIOUSNESS: Yes awake, Yes oriented to person, Yes oriented to place and Yes oriented to time HENMT: COMMON NORMALS: normocephalic, atraumatic and hearing grossly normal bilaterally HEAD & SCALP: normocephalic and atraumatic Resp: COMMON NORMALS: normal respiratory effort, No retractions, No use of accessory muscles and clear to auscultation bilaterally AUSCULTATION: clear to auscultation bilaterally Cardio: COMMON NORMALS: regular rate, regular rhythm and No murmurs present (Cardio) RATE: regular rate RHYTHM: regular rhythm GI: COMMON NORMALS: Soft to palpation and No hepatosplenomegaly present A USCULTATION: Yes normoactive bowel sounds PALPATION: Yes Soft to palpation, No Tenderness to palpation present (GI), No Guarding due to palpation present (GI) and Yes No hepatosplenomegaly present Extremity: COMMON NORMALS: normal to inspection, capillary refill normal, no clubbing, cyanosis or edema, no calf tenderness and no pedal edema Neuro: SENSORIUM/ORIENTATION: Yes oriented to person, Yes oriented to place and Yes oriented to time Skin: COMMON NORMALS: no rashes or lesions noted GENERAL SKIN EXAM: no rashes or lesions noted Course 2 Vital Signs: Vital signs: Vital Signs Temperature 97.7 F 09/30/23 08:29 Pulse Rate 73 09/30/23 08:29 Respiratory Rate 18 09/30/23 08:29 Blood Pressure 125/74 09/30/23 11:42 Pulse Oximetry 98 09/30/23 08:29 Oxygen Delivery Me thod Room Air 09/30/23 08:29 MDM - Chest Pain Medical Decision Making D-dimer mildly elevated 6 chest x-ray was negative CT showed questionable pneumonia we will start her on Levaquin 750 mg daily for 1 week push fluids recheck with primary care if not improving. No PE on CT a chest. Medical Records I reviewed the patient's medical records. Lab Data I reviewed the patient's lab results. 09/30/23 08:32 09/30/23 08:32 Laboratory Results WBC 9.09 10^3/uL (3.29-11.43) 09/30/23 08:32 RBC 4.90 10^6/uL (3.85-5.65) 09/30/23 08:32 Hgb 14.10 g/dL (11.27-16.99) 09/30/23 08:32 Hct 42.3 % (36-47) 09/30/23 08:32 MCV 86.3 fl (85-98) 09/30/23 08:32 MCH 28.8 pg (27-33) 09/30/23 08:32 MCHC 33.3 g/dL (30-55) 09/30/23 08:32 RDW 13.1 % (12.1-15.1) 09/30/23 08:32 Plt Count 369 10^3/cmm (157-399) 09/30/23 08:32 MPV 8.9 fL (7.4-10.4) 09/30/23 08:32 Neut % (Auto) 70.7 % 09/30/23 08:32 Lymph % (Auto) 21.5 % 09/30/23 08:32 [place] % (Auto) 5.7 % 09/30/23 08:32 Eos % (Auto) 1.7 % 09/30/23 08:32 Baso % (Auto) 0.2 % 09/30/23 08:32 Neut # (Auto) 6.43 10^3/uL (1.8-7.7) 09/30/23 08:32 Lymph # (Auto) 2.0 10^3/uL (0.8-4.8) 09/30/23 08:32 [place] # (Auto) 0.5 10^3/uL (0.2-0.9) 09/30/23 08:32 Eos # (Auto) 0.2 10^3/uL (0.0-0.8) 09/30/23 08:32 Baso # (Auto) 0.0 10^3/uL (0.0-0.1) 09/30/23 08:32 Nucleated RBC % (auto) 0 % 09/30/23 08:32 Nucleated RBCs # 0.0 /100WBC 09/30/23 08:32 D-Dimer 0.72 ug/mLFEU (0-0.59) H 09/30/23 08:32 Sodium 140 mmol/L (136-145) 09/30/23 08:32 Potassium 4.4 mmol/L (3.5-5.1) 09/30/23 08:32 Chloride 106 mmol/L (98-107) 09/30/23 08:32 Carbon Dioxide 24 mmol/L (22-29) 09/30/23 08:32 Anion Gap 14.4 (5-19) 09/30/23 08:32 BUN 11 mg/dL (6-20) 09/30/23 08:32 Creatinine 0.8 mg/dL (0.5-0.9) 09/30/23 08:32 GFR Calculation 85.4 mL/min (90-130) L 09/30/23 08:32 Glucose 100 mg/dL (65-115) 09/30/23 08:32 Calculated Osmolality 289 mOsm/kg (285-295) 09/30/23 08:32 Calcium 9.2 mg/dL (8.5-10.5) 09/30/23 08:32 Total Bilirubin 0.3 mg/dL (0.15-1.2) 09/30/23 08:32 AST 18 U/L (0-32) 09/30/23 08:32 ALT 25 U/L (0-33) 09/30/23 08:32 Alkaline Phosphatase 105 U/L (35-105) 09/30/23 08:32 Troponin T Baseline < 6 ng/L (0-10) 09/30/23 08:32 Troponin T 120 Minute 6.00 ng/L (0-10) 09/30/23 10:29 Delta Troponin T 0.24772 ABS# (0-10) 09/30/23 10:29 Total Protein 7.8 g/dL (6.6-8.7) 09/30/23 08:32 Albumin 4.3 g/dL (3.5-5.2) 09/30/23 08:32 Globulin 3.5 g/dL (1.3-4.6) 09/30/23 08:32 All radiology interpretation(s) finalized by discharge Discharge Plan Discharge Patient Disposition: Home Clinical Impression: Pneumonia Condition: Stable Prescriptions: New levofloxacin 750 mg tablet 750 mg PO DAILY 7 Days Qty: 7 0RF No Action albuterol sulfate 90 mcg/actuation HFA aerosol inhaler 2 inh inhalation QID PRN (Reason: shortness of breath or wheezing) Qty: 8.5 0RF amitriptyline 10 mg tablet 10 mg PO BEDTIME metformin 500 mg tablet extended release 24 hr 200 mg PO DAILY Discharge Orders: Discharge ED (Routine); Ordered 09/30/23 Ordered By: Enrique Minor Referrals: Delilah Laughlin FNP [Primary Care Provider] - Discharge Diet: Usual diet Discharge Activity: Increase activity as tolerated Patient Instructions: Pneumonia (ED), Opioid Safety, Pain Management Activity Restrictions/Additional Instructions: Thank you for choosing [facility] for your healthcare needs today. Please realize this is an emergency room and that we are providing you with a medical screening exam and this may not be complete and all inclusive of all the testing and or work up that you may need to determine your ailment or severity of your illness. It is very important that you follow up as instructed or that you return to the Emergency Department should you have concerns or if your condition changes or worsens in any way. Stand Alone Forms: Work/School Release Coding Level of Care Code ED Park Superintendent for Anthony Burton
--- NOTE | 2023-09-30 09:43 | CT_ITS ---
WS: [id number] CT HEAD NONCONTRAST HISTORY: headache AMS TECHNIQUE: Contiguous axial imaging performed through the brain in 3.0 mm imaging. Bone and soft tiss ue windows. Sagittal and coronal reformats reviewed. All CT scans at [facility] use at least one of these dose optimization techniques: automated exposure control; mA and/or kV adjustment per pa tient size (includes targeted exams where dose is matched to clinical indication); or iterative recon struction. DLP: 1056.18 mGy.cm COMPARISON: None available. No acute intracranial hemorrhage, midline shift or mass effect. No atrophy or prior infarcts or herniation. Ventricles: Normal size with no hydrocephalus. Paranasal sinuses: Mucous retention cyst in the RIGHT maxillary sinus. Mastoid air cells: Well pneumatized. Calvarium and scalp: Skull is intact with no soft tissue edema or swelling. IMPRESSION: Negative head CT.
--- NOTE | 2023-09-30 10:12 | PC.PHAR ---
PT WOULD LIKE TO HAVE A NEW ORDER FOR ALBUTEROL HFA RESCUE INHALER. 09/30/23
[2023-09-30 10:52] LABS: D Dimer 0.72 ug/mLFEU (0-0.59); Troponin(5th) Baseline < 6 ng/L (0-10)
[2023-09-30 11:04] LABS: Troponin 5 2HR Delta 0.00001 ABS# (0-10)
--- NOTE | 2023-09-30 11:04 | CT_ITS ---
WS: [id number] CT CHEST ANGIOGRAPHY WITH REFORMATS HISTORY: elevated d dimer TECHNIQUE: Contiguous axial images are obtained through the chest during arterial injection of intrav enous contrast. Images are reconstructed to evaluate the pulmonary arteries. MIP imaging also reviewe d. All CT scans at [facility] use at least one of these dose optimization techniques: automat ed exposure control; mA and/or kV adjustment per patient size (includes targeted exams where dose is matched to clinical indication); or iterative reconstruction. CONTRAST: Omnipaque 350; 100 mL IV. DLP: 491.94 mGy.cm COMPARISON: 03/22/2022 Good opacification of the pulmonary arteries. No filling defects or pulmonary embolism. Normal size a waqar. Lung volumes are low due to poor inspiration. Subsegmental atelectasis at the RIGHT lung base. There is additional reticular nodular opacification at the RIGHT lung base near the atelectasis that was no t present on the prior study and consistent with developing pneumonia. Heart is mildly enlarged. No pericardial or pleural effusions. Small mediastinal and hilar lymph node s. RIGHT hilar lymph node measures 13 mm. Hepatic steatosis. The liver is enlarged. Numerous stones in the gallbladder. No adrenal mass. IMPRESSION: 1. No pulmonary embolism. 2. RIGHT lower lobe opacification consistent with developing pneumonia. 3. Cholelithiasis without acute cholecystitis. 4. At least moderate hepatomegaly with hepatic steatosis. 5. Mildly reactive mediastinal and hilar lymph nodes.
[2023-09-30 11:42] VITALS: BP 125/74
[2023-09-30] MEDS: iohexol 350 mg/mL 500 mL Btl (per mL) IV (12:00)
--- NOTE | 2023-09-30 12:10 | ECG_ITS ---
[facility] Test Date: 2023-09-30 Pat Name: Bar Ceja Department: Room: Gender: Female Operational Risk Analyst: : 1995 Requested By: Enrique Easley Order Number: [id number] Miguel Angel MD: Portia Ruiz M.D. Measurements Intervals [place] Rate: 55 P: 54 PA: 165 QRS: 23 QRSD: 87 T: 23 QT: 387 QTc: 372 Interpretive Statements SINUS BRADYCARDIA WITH MARKED SINUS ARRHYTHMIA Compared to ECG 09/30/2023 08:31:38 Sinus rhythm no longer present Myocardial infarct finding no longer present Electronically Signed On 09-30-2023 21:15:24 CLOTHING PATTERN PREPARER by Portia Ruiz M.D. [id number]
== END 2023-09-30 13:11 | disposition home or self-care (01) ==
PROVIDERS: Emergency Provider Family Medicine; PCP Nurse Practitioner Family
DX: J18.9 Pneumonia, unspecified organism (principal); Z79.84 Long term (current) use of oral hypoglycemic drugs; F17.290 Nicotine dependence, other tobacco product, uncomplicated
CPT/HCPCS: 36415; 70450; 71045; 71275; 80053; 84484; 85025; 85378; 93005; 99285; Q9967